=== PATIENT | female | born 1955 | race Two or more races ===

== ENCOUNTER 2019-09-18 03:57 | Inpatient (IN) | payer OTHER ==
[~2019-09-18] VITALS: Ht 162.6 cm; Wt 91.0 kg
[2019-09-18] MEDS ORDERED: SODIUM CHLORIDE 0.9% 2,600 ML IV ONE (04:31)
[2019-09-18 05:58] LABS: BASOPHILS % (AUTO) 0.4 % (0.0-2.0); EOSINOPHILS % (AUTO) 0.2 % (1.0-6.0); HEMATOCRIT 47.4 % (36-46); HEMOGLOBIN 15.9 g/dL (12.0-16.0); LYMPHOCYTES # (AUTO) 2.2 K/uL (1.0-4.8); LYMPHOCYTES % (AUTO) 17.7 % (22.0-44.0); MEAN CORPUSCULAR HEMOGLOBIN 30.9 pg (26.0-34.0); MEAN CORPUSCULAR HGB CONC 33.5 G/dL (31.0-37.0); MEAN CORPUSCULAR VOLUME 92 fL (80-100); MONOCYTES # (AUTO) 1.2 K/uL (0.1-1.0); MONOCYTES % (AUTO) 9.4 % (2.0-9.0); NEUTROPHILS # (AUTO) 8.9 K/uL (1.8-7.7); NEUTROPHILS % (AUTO) 72.3 % (40.0-70.0); PLATELET COUNT (AUTO) 357 K/uL (150-450); RED BLOOD CELL COUNT(AUTO) 5.14 MIL/uL (4.00-5.20); RED CELL DISTRIBUTION WIDTH 13.3 % (11.5-14.5)
[2019-09-18 06:13] LABS: ANION GAP 15 mmol/L (8-16); CALCIUM, TOTAL 10.6 mg/dL (8.8-10.5); CARBON DIOXIDE 26 mmol/L (22-29); CHLORIDE 99 mmol/L (98-107); CREATININE 0.96 mg/dL (0.60-1.30); GLOMERULAR FILTR. RATE CALC 59 mL/min (>60); GLUCOSE,RANDOM 175 mg/dL (70-110); POTASSIUM 3.4 mmol/L (3.5-5.1); SODIUM SERUM 140 mmol/L (136-145); UREA NITROGEN, BLOOD 11 mg/dL (7-18)
[2019-09-18 06:14] LABS: PROTHROMBIN TIME 10.7 SEC (9.4-11.6)
[2019-09-18 06:19] LABS: ALANINE AMINOTRANSFERASE 40 U/L (12-78); ALBUMIN 4.4 g/dL (3.4-5.0); ALKALINE PHOSPHATASE 194 U/L (46-116); ASPARTATE AMINOTRANSFERASE 32 U/L (15-37); BILIRUBIN,TOTAL 0.6 mg/dL (0.1-1.0); TOTAL PROTEIN, SERUM 9.4 g/dL (6.4-8.2)
[2019-09-18 06:24] LABS: B-TYPE NATRIURETIC PEPTIDE < 5 pg/mL (0-100)
[2019-09-18 06:41] LABS: FREE T4 (FREE THYROXINE) 1.38 ng/dL (0.76-1.46); THYROID STIMULATING HORMONE 1.33 uIU/mL (0.36-3.74)
[2019-09-18] MEDS ORDERED: LORazepam 2 MG/ML VIAL ONE (09:09)
[2019-09-18] MEDS ORDERED: DiphenhydrAMINE HCL 50 MG/ML VIAL ONE (09:09)
[2019-09-18] MEDS ORDERED: METOPROLOL TARTRATE 5 MG/5 ML VIAL IVP ONE (11:15)
[2019-09-18 11:44] LABS: APPEARANCE,URINE CLEAR (CLEAR); BILIRUBIN,URINE NEGATIVE (NEGATIVE); GLUCOSE, URINE (UA) NEGATIVE (NEGATIVE); KETONES,URINE 40 mg/dL (NEGATIVE); LEUKOCYTE ESTERASE ,URINE NEGATIVE (NEGATIVE); NITRATE,URINE NEGATIVE (NEGATIVE); OCCULT BLOOD,URINE NEGATIVE (NEGATIVE); PH,URINE 6.5 (5.0-8.0); PROTEIN,URINE NEGATIVE (NEGATIVE); UROBILINOGEN,URINE 0.2 mg/dL (<=1.0)
[2019-09-18 11:49] LABS: AMPHET/METH SCREEN,URINE NEGATIVE (NEGATIVE); BARBITURATE SCREEN, URINE NEGATIVE (NEGATIVE); BENZODIAZEPINES SCREEN,URINE NEGATIVE (NEGATIVE); CANNABINOID SCREEN,URINE NEGATIVE (NEGATIVE); COCAINE SCREEN,URINE NEGATIVE (NEGATIVE); METHADONE SCREEN, URINE NEGATIVE (NEGATIVE); OPIATE SCREEN,URINE NEGATIVE (NEGATIVE); PHENCYCLIDINE SCREEN,URINE NEGATIVE (NEGATIVE)
[2019-09-18 11:51] LABS: BASOPHILS % (AUTO) 0.4 % (0.0-2.0); EOSINOPHILS % (AUTO) 0.3 % (1.0-6.0); HEMATOCRIT 42.9 % (36-46); HEMOGLOBIN 14.5 g/dL (12.0-16.0); LYMPHOCYTES # (AUTO) 2.1 K/uL (1.0-4.8); MEAN CORPUSCULAR HEMOGLOBIN 31.2 pg (26.0-34.0); MEAN CORPUSCULAR HGB CONC 33.8 G/dL (31.0-37.0); MEAN CORPUSCULAR VOLUME 92 fL (80-100); MONOCYTES % (AUTO) 11.1 % (2.0-9.0); NEUTROPHILS # (AUTO) 5.9 K/uL (1.8-7.7); NEUTROPHILS % (AUTO) 65.2 % (40.0-70.0); PLATELET COUNT (AUTO) 291 K/uL (150-450); RED BLOOD CELL COUNT(AUTO) 4.66 MIL/uL (4.00-5.20); RED CELL DISTRIBUTION WIDTH 13.4 % (11.5-14.5)
[2019-09-18] MEDS ORDERED: ACETAMINOPHEN 325 MG TABLET PO PRN (12:00)
[2019-09-18] MEDS ORDERED: ALBUTEROL SULFATE 2.5 MG/0.5 ML NEB SOLUTION NEB PRN (12:00)
[2019-09-18] MEDS ORDERED: IPRATROPIUM BROMIDE 0.5 MG/2.5 ML NEB SOLUTION NEB PRN (12:00)
[2019-09-18] MEDS ORDERED: DOCUSATE SODIUM 100 MG CAPSULE PO PRN (12:00)
[2019-09-18] MEDS ORDERED: BISACODYL 10 MG RECTAL RECTAL SUPPOSITORY PR PRN (12:00)
[2019-09-18] MEDS ORDERED: 0.9% SODIUM CHLORIDE 10 ML SYRINGE IVP PRN (12:00)
[2019-09-18] MEDS ORDERED: MAGNESIUM HYDROXIDE SUSPENSION 30 ML UDCUP PO PRN (12:00)
[2019-09-18] MEDS ORDERED: ONDANSETRON HCL 4 MG/2 ML VIAL IVP PRN (12:00)
[2019-09-18 12:28] LABS: ANION GAP 14 mmol/L (8-16); CALCIUM, TOTAL 8.9 mg/dL (8.8-10.5); CARBON DIOXIDE 23 mmol/L (22-29); CHLORIDE 107 mmol/L (98-107); CREATININE 0.79 mg/dL (0.60-1.30); GLOMERULAR FILTR. RATE CALC > 60 mL/min (>60); GLUCOSE,RANDOM 137 mg/dL (70-110); POTASSIUM 3.4 mmol/L (3.5-5.1); SODIUM SERUM 144 mmol/L (136-145); UREA NITROGEN, BLOOD 9 mg/dL (7-18)
[2019-09-18 12:33] LABS: ALANINE AMINOTRANSFERASE 35 U/L (12-78); ALBUMIN 3.7 g/dL (3.4-5.0); ALKALINE PHOSPHATASE 165 U/L (46-116); ASPARTATE AMINOTRANSFERASE 29 U/L (15-37); BILIRUBIN,TOTAL 0.5 mg/dL (0.1-1.0); TOTAL PROTEIN, SERUM 7.8 g/dL (6.4-8.2)
[2019-09-18] MEDS: SODIUM CHLORIDE 0.9% 1,000 ML IV SCH (12:58)
[2019-09-18 14:14] VITALS: BP 148/80
[2019-09-18 16:14] VITALS: BP 137/85
[2019-09-18] MEDS ORDERED: IBUP-1506 PO (16:42)
[2019-09-18] MEDS ORDERED: CARB100 PO (16:42)
[2019-09-18] MEDS ORDERED: QUET25TA PO (16:42)
[2019-09-18] MEDS ORDERED: INFLUENZA VIRUS VACCINE QVS 2019-20 (3YR+)/PF 60 MCG/0.5 ML SYRINGE IM ONE (18:00)
[2019-09-18] MEDS ORDERED: POTASSIUM CHLORIDE 20 MEQ ER TABLET PO PRN (18:00)
[2019-09-18] MEDS: POTASSIUM CHL 10 MEQ/WATER 50 ML IV PRN (18:16)
[2019-09-18 20:30] VITALS: BP 144/91
[2019-09-18] MEDS: HEPARIN SODIUM,PORCINE 5,000 UNITS/ML VIAL SQ SCH (21:00)
[2019-09-18 23:00] VITALS: BP 149/96
[2019-09-19] MEDS: SODIUM CHLORIDE 0.9% 1,000 ML IV SCH ×2 (01:20→14:40)
[2019-09-19 04:45] VITALS: BP 148/99
[2019-09-19 08:01] VITALS: BP 151/104
[2019-09-19] MEDS: PANTOPRAZOLE SODIUM 40 MG DR TABLET PO SCH (09:00)
[2019-09-19] MEDS ORDERED: NIFEdipine 30 MG ER TABLET PO SCH (09:00)
[2019-09-19] MEDS: HEPARIN SODIUM,PORCINE 5,000 UNITS/ML VIAL SQ SCH ×2 (09:00→21:30)
[2019-09-19] MEDS: NIFEdipine 30 MG ER TABLET PO SCH ×2 (21:00→21:30)
[2019-09-19 21:30] VITALS: BP 166/99
[2019-09-20 00:42] VITALS: BP 163/117
[2019-09-20] MEDS: HydrALAZINE HCL 20 MG/ML VIAL IVP PRN ×2 (01:16→05:34)
[2019-09-20] MEDS: SODIUM CHLORIDE 0.9% 1,000 ML IV SCH ×2 (04:00→17:20)
[2019-09-20 04:48] VITALS: BP 166/96
[2019-09-20] MEDS ORDERED: METOPROLOL TARTRATE 5 MG/5 ML VIAL IVP ONE (06:00)
[2019-09-20 07:30] VITALS: BP 146/78
[2019-09-20] MEDS: HEPARIN SODIUM,PORCINE 5,000 UNITS/ML VIAL SQ SCH ×2 (08:48→21:00)
[2019-09-20] MEDS: NIFEdipine 30 MG ER TABLET PO SCH ×2 (09:00→21:00)
[2019-09-20] MEDS: PANTOPRAZOLE SODIUM 40 MG DR TABLET PO SCH (09:00)
[2019-09-20] MEDS ORDERED: ATOR10TA69 PO (10:10)
[2019-09-20] MEDS ORDERED: METF-960 PO (10:10)
[2019-09-20 10:16] LABS: BASOPHILS % (AUTO) 0.4 % (0.0-2.0); EOSINOPHILS % (AUTO) 0.3 % (1.0-6.0); LYMPHOCYTES # (AUTO) 1.9 K/uL (1.0-4.8); LYMPHOCYTES % (AUTO) 19.1 % (22.0-44.0); MEAN CORPUSCULAR HEMOGLOBIN 30.8 pg (26.0-34.0); MEAN CORPUSCULAR HGB CONC 33.3 G/dL (31.0-37.0); MEAN CORPUSCULAR VOLUME 93 fL (80-100); MONOCYTES # (AUTO) 0.9 K/uL (0.1-1.0); MONOCYTES % (AUTO) 8.9 % (2.0-9.0); NEUTROPHILS % (AUTO) 71.3 % (40.0-70.0); PLATELET COUNT (AUTO) 399 K/uL (150-450); RED BLOOD CELL COUNT(AUTO) 5.19 MIL/uL (4.00-5.20); RED CELL DISTRIBUTION WIDTH 13.6 % (11.5-14.5)
[2019-09-20 10:28] LABS: ANION GAP 14 mmol/L (8-16); CALCIUM, TOTAL 9.9 mg/dL (8.8-10.5); CARBAMAZEPINE (TEGRETOL) 0.7 mcg/mL (4.0-12.0); CARBON DIOXIDE 22 mmol/L (22-29); CHLORIDE 103 mmol/L (98-107); CREATININE 0.87 mg/dL (0.60-1.30); GLOMERULAR FILTR. RATE CALC > 60 mL/min (>60); GLUCOSE,RANDOM 168 mg/dL (70-110); POTASSIUM 3.7 mmol/L (3.5-5.1); SODIUM SERUM 139 mmol/L (136-145); UREA NITROGEN, BLOOD 14 mg/dL (7-18)
[2019-09-20 11:03] VITALS: BP 142/96
[2019-09-20] MEDS: HydrALAZINE HCL 25 MG TABLET PO SCH ×3 (14:55→21:00)
[2019-09-20 15:58] VITALS: BP 148/89
[2019-09-20 19:42] VITALS: BP 156/89
[2019-09-20 20:59] LABS: GLUCOMETER DEV NAME(LOC) 5N.2; GLUCOSE,POINT OF CARE 165 MG/DL (70-110)
[2019-09-21] VITALS (8 sets, daily range): BP systolic 101–151; BP diastolic 35–101
[2019-09-21] MEDS: LORazepam 2 MG/ML VIAL IVP PRN ×3 (00:47→17:35)
[2019-09-21 06:26] LABS: GLUCOMETER DEV NAME(LOC) 5S.1; GLUCOSE,POINT OF CARE 174 MG/DL (70-110)
[2019-09-21 06:26] LABS: GLUCOMETER DEV NAME(LOC) 5S.1; GLUCOSE,POINT OF CARE 139 MG/DL (70-110)
[2019-09-21] MEDS: SODIUM CHLORIDE 0.9% 1,000 ML IV SCH ×2 (06:40→12:51)
[2019-09-21 06:42] LABS: GLUCOMETER DEV NAME(LOC) 5N.1; GLUCOSE,POINT OF CARE 161 MG/DL (70-110)
[2019-09-21 07:26] LABS: BASOPHILS % (AUTO) 0.3 % (0.0-2.0); EOSINOPHILS % (AUTO) 1.3 % (1.0-6.0); HEMATOCRIT 44.4 % (36-46); HEMOGLOBIN 14.7 g/dL (12.0-16.0); LYMPHOCYTES # (AUTO) 2.9 K/uL (1.0-4.8); LYMPHOCYTES % (AUTO) 26.8 % (22.0-44.0); MEAN CORPUSCULAR VOLUME 94 fL (80-100); MONOCYTES # (AUTO) 1.1 K/uL (0.1-1.0); NEUTROPHILS # (AUTO) 6.7 K/uL (1.8-7.7); NEUTROPHILS % (AUTO) 61.6 % (40.0-70.0); PLATELET COUNT (AUTO) 378 K/uL (150-450); RED BLOOD CELL COUNT(AUTO) 4.73 MIL/uL (4.00-5.20); RED CELL DISTRIBUTION WIDTH 13.6 % (11.5-14.5)
[2019-09-21 07:36] LABS: ANION GAP 17 mmol/L (8-16); CALCIUM, TOTAL 9.9 mg/dL (8.8-10.5); CARBON DIOXIDE 22 mmol/L (22-29); CHLORIDE 106 mmol/L (98-107); CREATININE 0.92 mg/dL (0.60-1.30); GLOMERULAR FILTR. RATE CALC > 60 mL/min (>60); GLUCOSE,RANDOM 115 mg/dL (70-110); POTASSIUM 4.1 mmol/L (3.5-5.1); SODIUM SERUM 145 mmol/L (136-145); UREA NITROGEN, BLOOD 18 mg/dL (7-18)
[2019-09-21] MEDS: PANTOPRAZOLE SODIUM 40 MG DR TABLET PO SCH (08:28)
[2019-09-21] MEDS: NIFEdipine 30 MG ER TABLET PO SCH ×2 (08:28→23:55)
[2019-09-21] MEDS: HydrALAZINE HCL 25 MG TABLET PO SCH ×4 (08:28→23:55)
[2019-09-21] MEDS: HEPARIN SODIUM,PORCINE 5,000 UNITS/ML VIAL SQ SCH ×2 (08:28→23:54)
[2019-09-21 12:36] LABS: GLUCOMETER DEV NAME(LOC) 5N.1; GLUCOSE,POINT OF CARE 154 MG/DL (70-110)
[2019-09-21] MEDS: CarBAMazepine 200 MG TABLET PO SCH ×2 (16:49→23:55)
[2019-09-21] MEDS: QUEtiapine FUMARATE 300 MG TABLET PO SCH ×2 (16:50→23:54)
[2019-09-21 20:39] LABS: GLUCOMETER DEV NAME(LOC) 5S.2A; GLUCOSE,POINT OF CARE 130 MG/DL (70-110)
[2019-09-21] MEDS ORDERED: QUEtiapine FUMARATE 300 MG TABLET PO SCH ×2 (21:00)
[2019-09-21] MEDS ORDERED: HydrALAZINE HCL 20 MG/ML VIAL IVP PRN (21:00)
[2019-09-21] MEDS ORDERED: CarBAMazepine 200 MG TABLET PO SCH ×2 (21:00)
[2019-09-22 00:19] VITALS: BP 156/86
[2019-09-22 05:32] VITALS: BP 124/66
[2019-09-22 06:02] LABS: GLUCOMETER DEV NAME(LOC) 6S.1; GLUCOSE,POINT OF CARE 117 MG/DL (70-110)
[2019-09-22 06:58] LABS: BASOPHILS % (AUTO) 0.7 % (0.0-2.0); EOSINOPHILS % (AUTO) 1.5 % (1.0-6.0); HEMATOCRIT 39.8 % (36-46); HEMOGLOBIN 13.6 g/dL (12.0-16.0); LYMPHOCYTES # (AUTO) 2.5 K/uL (1.0-4.8); LYMPHOCYTES % (AUTO) 33.4 % (22.0-44.0); MEAN CORPUSCULAR HEMOGLOBIN 31.9 pg (26.0-34.0); MEAN CORPUSCULAR HGB CONC 34.2 G/dL (31.0-37.0); MEAN CORPUSCULAR VOLUME 93 fL (80-100); MONOCYTES # (AUTO) 0.7 K/uL (0.1-1.0); MONOCYTES % (AUTO) 10.2 % (2.0-9.0); NEUTROPHILS % (AUTO) 54.2 % (40.0-70.0); PLATELET COUNT (AUTO) 285 K/uL (150-450); RED BLOOD CELL COUNT(AUTO) 4.27 MIL/uL (4.00-5.20); RED CELL DISTRIBUTION WIDTH 13.7 % (11.5-14.5)
[2019-09-22 07:09] LABS: ANION GAP 14 mmol/L (8-16); CALCIUM, TOTAL 9.1 mg/dL (8.8-10.5); CARBON DIOXIDE 23 mmol/L (22-29); CHLORIDE 104 mmol/L (98-107); CREATININE 0.74 mg/dL (0.60-1.30); GLOMERULAR FILTR. RATE CALC > 60 mL/min (>60); GLUCOSE,RANDOM 114 mg/dL (70-110); SODIUM SERUM 141 mmol/L (136-145); UREA NITROGEN, BLOOD 12 mg/dL (7-18)
[2019-09-22 07:14] LABS: POTASSIUM 2.9 mmol/L (3.5-5.1)
[2019-09-22 07:36] VITALS: BP 159/78
[2019-09-22] MEDS: HEPARIN SODIUM,PORCINE 5,000 UNITS/ML VIAL SQ SCH ×2 (08:12→20:06)
[2019-09-22] MEDS: LORazepam 2 MG/ML VIAL IVP PRN (08:14)
[2019-09-22] MEDS: HydrALAZINE HCL 25 MG TABLET PO SCH ×4 (08:14→20:06)
[2019-09-22] MEDS: PANTOPRAZOLE SODIUM 40 MG DR TABLET PO SCH (08:14)
[2019-09-22] MEDS: NIFEdipine 30 MG ER TABLET PO SCH ×2 (08:14→21:24)
[2019-09-22] MEDS: QUEtiapine FUMARATE 300 MG TABLET PO SCH ×2 (08:14→21:24)
[2019-09-22] MEDS: CarBAMazepine 200 MG TABLET PO SCH ×2 (08:15→20:06)
[2019-09-22] MEDS: POTASSIUM CHL 10 MEQ/WATER 50 ML IV PRN ×4 (09:17→14:26)
[2019-09-22] MEDS: SODIUM CHLORIDE 0.9% 1,000 ML IV SCH (09:18)
[2019-09-22 12:00] LABS: GLUCOMETER DEV NAME(LOC) 6N.2; GLUCOSE,POINT OF CARE 117 MG/DL (70-110)
[2019-09-22 12:18] VITALS: BP 148/81
[2019-09-22 15:13] VITALS: BP 124/87
[2019-09-22 20:16] VITALS: BP 124/80
[2019-09-22 21:57] LABS: GLUCOMETER DEV NAME(LOC) 6N.2; GLUCOSE,POINT OF CARE 170 MG/DL (70-110)
== END 2019-09-22 21:30 | DRG 78 ==
LOC: EMS 03:57 → 5S 12:53 → 6N 09-21 19:10
PROVIDERS: ADMIT Internal Medicine; ATTEND Internal Medicine
DX: I67.4 Hypertensive encephalopathy (principal); R65.10 Systemic inflammatory response syndrome (SIRS) of non-infectious origin without acute organ dysfunction; F20.9 Schizophrenia, unspecified; E87.6 Hypokalemia; R73.9 Hyperglycemia, unspecified; I10 Essential (primary) hypertension; Z79.899 Other long term (current) drug therapy
CPT/HCPCS: 70450; 83036; 83605; 83970; 84132; 84145; 84439; 84443; 87040; 93005; 93306; 97116; 97162; 99291; G0378; G0480; J0360; J1200; J1644; J2060; J3480; J3490; J7030

== ENCOUNTER 2019-09-22 21:30 | Inpatient (IN) | payer OTHER ==
[~2019-09-22] VITALS: Ht 162.6 cm; Wt 87.8 kg
[~2019-09-22 21:30] MED LIST: ATOR10TA69 PO; CARB100 PO; IBUP-1506 PO; METF-960 PO; QUET25TA PO
[2019-09-22] MEDS ORDERED: INFLUENZA VIRUS VACCINE QVS 2019-20 (3YR+)/PF 60 MCG/0.5 ML SYRINGE IM ONE (23:00)
[2019-09-22 23:01] VITALS: BP 147/99
[2019-09-22] MEDS ORDERED: PNEUMOCOCCAL VACCINE POLYVALENT 0.5 ML VIAL [PPSV23] IM ONE (23:15)
[2019-09-23 05:31] LABS: GLUCOMETER DEV NAME(LOC) 3E.I 2; GLUCOSE,POINT OF CARE 118 MG/DL (70-110)
[2019-09-23 06:08] VITALS: BP 140/71
[2019-09-23] MEDS: HALOPERIDOL 5 MG TABLET PO PRN (06:55)
[2019-09-23] MEDS: LORazepam 2 MG TABLET PO PRN (06:55)
[2019-09-23 08:48] VITALS: BP 117/67
[2019-09-23] MEDS ORDERED: LOPERAMIDE HCL 2 MG CAPSULE PO PRN (09:15)
[2019-09-23] MEDS ORDERED: MAG HYDROX/AL HYDROX/SIMETH ES 30 ML SUSPENSION UDCUP PO PRN (09:15)
[2019-09-23] MEDS ORDERED: ONDANSETRON HCL 4 MG TABLET PO PRN (09:15)
[2019-09-23] MEDS ORDERED: GuaiFENesin/D-METHORPHAN [SUGAR-FREE] 200-20MG/10 ML SYRUP UDCUP PO PRN (09:15)
[2019-09-23] MEDS ORDERED: ALBUTEROL SULFATE HFA 90 MCG/PUFF 8 GM INHALER IH PRN (09:15)
[2019-09-23] MEDS ORDERED: PETROLATUM,WHITE 28 GM JELLY TP PRN (09:15)
[2019-09-23] MEDS ORDERED: CloNIDine HCL 0.1 MG TABLET PO PRN (09:15)
[2019-09-23] MEDS ORDERED: ACETAMINOPHEN 325 MG TABLET PO PRN (09:15)
[2019-09-23] MEDS ORDERED: NICOTINE 14 MG/24 HOUR PATCH TD PRN (09:15)
[2019-09-23] MEDS ORDERED: DOCUSATE SODIUM 100 MG CAPSULE PO PRN (09:15)
[2019-09-23] MEDS ORDERED: IBUPROFEN 400 MG TABLET PO PRN (09:15)
[2019-09-23 09:24] LABS: CHOL/HDL RATIO 3.8 (3.9-5.7); POTASSIUM 3.4 mmol/L (3.5-5.1)
[2019-09-23] MEDS: CarBAMazepine 100 MG CHEWABLE TABLET PO SCH ×2 (09:48→16:55)
[2019-09-23] MEDS: HydrALAZINE HCL 25 MG TABLET PO SCH ×4 (09:48→20:45)
[2019-09-23] MEDS: PANTOPRAZOLE SODIUM 40 MG DR TABLET PO SCH (09:48)
[2019-09-23] MEDS: NIFEdipine 30 MG ER TABLET PO SCH ×2 (09:49→16:54)
[2019-09-23] MEDS: QUEtiapine FUMARATE 300 MG TABLET PO SCH ×2 (09:49→16:54)
[2019-09-23] MEDS ORDERED: POTASSIUM CHLORIDE 20 MEQ ER TABLET PO ONE (16:45)
[2019-09-23] MEDS: MetFORMIN HCL 500 MG ER TABLET PO SCH (16:55)
[2019-09-23] MEDS: ATORVASTATIN CALCIUM 10 MG TABLET PO SCH (20:45)
[2019-09-24 05:29] LABS: GLUCOMETER DEV NAME(LOC) 3E.I 2; GLUCOSE,POINT OF CARE 125 MG/DL (70-110)
[2019-09-24 08:30] VITALS: BP 117/65
[2019-09-24] MEDS: CarBAMazepine 100 MG CHEWABLE TABLET PO SCH ×2 (08:41→18:05)
[2019-09-24] MEDS: QUEtiapine FUMARATE 300 MG TABLET PO SCH ×2 (08:41→18:05)
[2019-09-24] MEDS: PANTOPRAZOLE SODIUM 40 MG DR TABLET PO SCH (08:42)
[2019-09-24] MEDS: NIFEdipine 30 MG ER TABLET PO SCH ×2 (08:42→18:05)
[2019-09-24] MEDS: HydrALAZINE HCL 25 MG TABLET PO SCH ×4 (08:42→21:40)
[2019-09-24] MEDS: MetFORMIN HCL 500 MG ER TABLET PO SCH (18:05)
[2019-09-24] MEDS: ATORVASTATIN CALCIUM 10 MG TABLET PO SCH (21:40)
[2019-09-25 04:28] VITALS: BP 121/72
[2019-09-25 06:02] LABS: GLUCOMETER DEV NAME(LOC) 3E.I 2; GLUCOSE,POINT OF CARE 129 MG/DL (70-110)
[2019-09-25] MEDS: NIFEdipine 30 MG ER TABLET PO SCH ×2 (08:23→17:02)
[2019-09-25] MEDS: PANTOPRAZOLE SODIUM 40 MG DR TABLET PO SCH (08:23)
[2019-09-25] MEDS: HydrALAZINE HCL 25 MG TABLET PO SCH ×4 (08:23→20:48)
[2019-09-25] MEDS: QUEtiapine FUMARATE 300 MG TABLET PO SCH ×2 (08:23→10:04)
[2019-09-25] MEDS: CarBAMazepine 100 MG CHEWABLE TABLET PO SCH ×2 (08:23→17:02)
[2019-09-25 09:17] VITALS: BP 109/86
[2019-09-25] MEDS: MAGNESIUM HYDROXIDE SUSPENSION 30 ML UDCUP PO PRN (10:11)
[2019-09-25 16:02] VITALS: BP 150/70
[2019-09-25] MEDS: MetFORMIN HCL 500 MG ER TABLET PO SCH (17:34)
[2019-09-25] MEDS: ATORVASTATIN CALCIUM 10 MG TABLET PO SCH (20:48)
[2019-09-26 00:25] VITALS: BP 144/74
[2019-09-26] MEDS: LORazepam 2 MG TABLET PO PRN (02:40)
[2019-09-26] MEDS: ZOLPIDEM TARTRATE 10 MG TABLET PO PRN (02:40)
[2019-09-26 05:51] LABS: GLUCOMETER DEV NAME(LOC) 3E.I 2; GLUCOSE,POINT OF CARE 146 MG/DL (70-110)
[2019-09-26 08:01] VITALS: BP 107/68
[2019-09-26] MEDS: QUEtiapine FUMARATE 300 MG TABLET PO SCH ×2 (09:21→16:34)
[2019-09-26] MEDS: HydrALAZINE HCL 25 MG TABLET PO SCH ×4 (09:21→20:15)
[2019-09-26] MEDS: CarBAMazepine 100 MG CHEWABLE TABLET PO SCH ×2 (09:21→16:34)
[2019-09-26] MEDS: PANTOPRAZOLE SODIUM 40 MG DR TABLET PO SCH (09:21)
[2019-09-26] MEDS: NIFEdipine 30 MG ER TABLET PO SCH ×2 (09:22→16:34)
[2019-09-26 16:12] VITALS: BP 130/79
[2019-09-26] MEDS: MetFORMIN HCL 500 MG ER TABLET PO SCH (16:34)
[2019-09-26 17:39] LABS: GLUCOMETER DEV NAME(LOC) 3E.I 2; GLUCOSE,POINT OF CARE 154 MG/DL (70-110)
[2019-09-26] MEDS: ATORVASTATIN CALCIUM 10 MG TABLET PO SCH (20:15)
[2019-09-27 03:00] VITALS: BP 132/69
[2019-09-27 05:38] LABS: GLUCOMETER DEV NAME(LOC) 3E.I 2; GLUCOSE,POINT OF CARE 142 MG/DL (70-110)
[2019-09-27 07:58] LABS: APPEARANCE,URINE CLOUDY (CLEAR); BILIRUBIN,URINE NEGATIVE (NEGATIVE); GLUCOSE, URINE (UA) NEGATIVE (NEGATIVE); KETONES,URINE NEGATIVE (NEGATIVE); LEUKOCYTE ESTERASE ,URINE MODERATE (NEGATIVE); NITRATE,URINE NEGATIVE (NEGATIVE); OCCULT BLOOD,URINE NEGATIVE (NEGATIVE); PH,URINE 5.5 (5.0-8.0); PROTEIN,URINE NEGATIVE (NEGATIVE); UROBILINOGEN,URINE 0.2 mg/dL (<=1.0)
[2019-09-27 08:23] LABS: BACTERIA,URINE Moderate /HPF (None Seen); RBC,URINE None Seen /HPF (0-2); SQUAMOUS EPITHELIAL CELL,UR Few /LPF (None Seen)
[2019-09-27 08:38] VITALS: BP 137/71
[2019-09-27] MEDS: PANTOPRAZOLE SODIUM 40 MG DR TABLET PO SCH (09:00)
[2019-09-27] MEDS: QUEtiapine FUMARATE 300 MG TABLET PO SCH ×2 (09:00→16:44)
[2019-09-27] MEDS: NIFEdipine 30 MG ER TABLET PO SCH ×2 (09:01→17:28)
[2019-09-27] MEDS: HydrALAZINE HCL 25 MG TABLET PO SCH ×4 (09:01→21:00)
[2019-09-27] MEDS: CarBAMazepine 100 MG CHEWABLE TABLET PO SCH ×2 (09:06→16:44)
[2019-09-27] MEDS: CEPHALEXIN MONOHYDRATE 250 MG CAPSULE PO SCH ×2 (13:00→16:50)
[2019-09-27 16:03] VITALS: BP 117/66
[2019-09-27 16:53] LABS: GLUCOMETER DEV NAME(LOC) 3E.I 2; GLUCOSE,POINT OF CARE 111 MG/DL (70-110)
[2019-09-27] MEDS: MetFORMIN HCL 500 MG ER TABLET PO SCH (17:28)
[2019-09-27] MEDS: ATORVASTATIN CALCIUM 10 MG TABLET PO SCH (21:06)
[2019-09-27 21:12] VITALS: BP 111/55
[2019-09-27] MEDS: ZOLPIDEM TARTRATE 10 MG TABLET PO PRN (21:12)
[2019-09-28 02:40] VITALS: BP 141/89
[2019-09-28] MEDS: HALOPERIDOL 5 MG TABLET PO PRN (02:44)
[2019-09-28] MEDS: LORazepam 2 MG TABLET PO PRN (02:44)
[2019-09-28 06:39] LABS: GLUCOMETER DEV NAME(LOC) 3E.I 2; GLUCOSE,POINT OF CARE 123 MG/DL (70-110)
[2019-09-28 08:00] VITALS: BP 159/96
[2019-09-28] MEDS: PANTOPRAZOLE SODIUM 40 MG DR TABLET PO SCH (08:23)
[2019-09-28] MEDS: CEPHALEXIN MONOHYDRATE 250 MG CAPSULE PO SCH ×3 (08:24→16:56)
[2019-09-28] MEDS: HydrALAZINE HCL 25 MG TABLET PO SCH ×4 (08:24→21:13)
[2019-09-28] MEDS: QUEtiapine FUMARATE 300 MG TABLET PO SCH ×2 (08:24→17:23)
[2019-09-28] MEDS: CarBAMazepine 100 MG CHEWABLE TABLET PO SCH ×2 (08:24→17:23)
[2019-09-28] MEDS: NIFEdipine 30 MG ER TABLET PO SCH ×2 (08:25→16:56)
[2019-09-28 16:37] VITALS: BP 126/82
[2019-09-28 17:12] LABS: GLUCOMETER DEV NAME(LOC) 3E.I 2; GLUCOSE,POINT OF CARE 111 MG/DL (70-110)
[2019-09-28] MEDS: MetFORMIN HCL 500 MG ER TABLET PO SCH (17:22)
[2019-09-28 21:12] VITALS: BP 113/59
[2019-09-28] MEDS: ATORVASTATIN CALCIUM 10 MG TABLET PO SCH (21:14)
[2019-09-29 05:37] VITALS: BP 117/73
[2019-09-29 05:42] LABS: GLUCOMETER DEV NAME(LOC) 3E.I 2; GLUCOSE,POINT OF CARE 122 MG/DL (70-110)
[2019-09-29 08:18] VITALS: BP 133/86
[2019-09-29] MEDS: CarBAMazepine 100 MG CHEWABLE TABLET PO SCH ×2 (09:05→17:47)
[2019-09-29] MEDS: NIFEdipine 30 MG ER TABLET PO SCH ×2 (09:06→17:47)
[2019-09-29] MEDS: HydrALAZINE HCL 25 MG TABLET PO SCH ×4 (09:06→21:21)
[2019-09-29] MEDS: PANTOPRAZOLE SODIUM 40 MG DR TABLET PO SCH (09:06)
[2019-09-29] MEDS: CEPHALEXIN MONOHYDRATE 250 MG CAPSULE PO SCH ×3 (09:06→17:47)
[2019-09-29] MEDS: QUEtiapine FUMARATE 300 MG TABLET PO SCH ×2 (09:06→17:46)
[2019-09-29 13:30] VITALS: BP 133/73
[2019-09-29 16:02] VITALS: BP_SYST 11; BP_SYST 111; BP_DIAS 64
[2019-09-29 17:08] LABS: GLUCOMETER DEV NAME(LOC) 3E.I 2; GLUCOSE,POINT OF CARE 120 MG/DL (70-110)
[2019-09-29] MEDS: MetFORMIN HCL 500 MG ER TABLET PO SCH (17:46)
[2019-09-29] MEDS: ATORVASTATIN CALCIUM 10 MG TABLET PO SCH (21:20)
[2019-09-29] MEDS: ZOLPIDEM TARTRATE 10 MG TABLET PO PRN (21:23)
[2019-09-30 06:28] LABS: GLUCOMETER DEV NAME(LOC) 3E.I 2; GLUCOSE,POINT OF CARE 127 MG/DL (70-110)
[2019-09-30] MEDS: PANTOPRAZOLE SODIUM 40 MG DR TABLET PO SCH (09:00)
[2019-09-30] MEDS: NIFEdipine 30 MG ER TABLET PO SCH ×2 (09:00→17:00)
[2019-09-30] MEDS: CEPHALEXIN MONOHYDRATE 250 MG CAPSULE PO SCH ×3 (09:00→17:00)
[2019-09-30] MEDS: QUEtiapine FUMARATE 300 MG TABLET PO SCH ×2 (09:00→17:00)
[2019-09-30] MEDS: HydrALAZINE HCL 25 MG TABLET PO SCH ×4 (09:00→21:00)
[2019-09-30] MEDS: CarBAMazepine 100 MG CHEWABLE TABLET PO SCH ×2 (09:00→17:00)
[2019-09-30 10:22] VITALS: BP 138/81
[2019-09-30] MEDS: MetFORMIN HCL 500 MG ER TABLET PO SCH (17:30)
[2019-09-30 17:35] LABS: GLUCOMETER DEV NAME(LOC) 3E.I 2; GLUCOSE,POINT OF CARE 126 MG/DL (70-110)
[2019-09-30 17:39] VITALS: BP 150/83
[2019-09-30] MEDS: ATORVASTATIN CALCIUM 10 MG TABLET PO SCH (21:00)
[2019-09-30] MEDS ORDERED: LORazepam 2 MG/ML VIAL IM ONE (22:30)
[2019-09-30] MEDS ORDERED: DiphenhydrAMINE HCL 50 MG/ML VIAL IM ONE (22:30)
[2019-09-30] MEDS ORDERED: HALOPERIDOL LACTATE 5 MG/ML VIAL IM ONE (22:30)
[2019-10-01 05:09] VITALS: BP 157/84
[2019-10-01 05:25] LABS: GLUCOMETER DEV NAME(LOC) 3E.I 2; GLUCOSE,POINT OF CARE 177 MG/DL (70-110)
[2019-10-01] MEDS ORDERED: HALOPERIDOL LACTATE 5 MG/ML VIAL IM ONE (08:15)
[2019-10-01] MEDS ORDERED: LORazepam 2 MG/ML VIAL IM ONE (08:15)
[2019-10-01] MEDS ORDERED: DiphenhydrAMINE HCL 50 MG/ML VIAL IM ONE (08:15)
[2019-10-01 08:30] VITALS: BP 161/102
[2019-10-01] MEDS: HydrALAZINE HCL 25 MG TABLET PO SCH ×4 (09:00→21:24)
[2019-10-01] MEDS: CarBAMazepine 100 MG CHEWABLE TABLET PO SCH ×2 (09:00→17:22)
[2019-10-01] MEDS: NIFEdipine 30 MG ER TABLET PO SCH ×2 (09:00→17:21)
[2019-10-01 11:48] LABS: BASOPHILS % (AUTO) 0.4 % (0.0-2.0); EOSINOPHILS % (AUTO) 0 % (1.0-6.0); HEMATOCRIT 43.2 % (36-46); HEMOGLOBIN 14.6 g/dL (12.0-16.0); LYMPHOCYTES # (AUTO) 1.7 K/uL (1.0-4.8); LYMPHOCYTES % (AUTO) 22.9 % (22.0-44.0); MEAN CORPUSCULAR HGB CONC 33.8 G/dL (31.0-37.0); MEAN CORPUSCULAR VOLUME 92 fL (80-100); MONOCYTES # (AUTO) 0.7 K/uL (0.1-1.0); MONOCYTES % (AUTO) 10.1 % (2.0-9.0); NEUTROPHILS # (AUTO) 4.9 K/uL (1.8-7.7); NEUTROPHILS % (AUTO) 66.6 % (40.0-70.0); PLATELET COUNT (AUTO) 331 K/uL (150-450); RED BLOOD CELL COUNT(AUTO) 4.71 MIL/uL (4.00-5.20); RED CELL DISTRIBUTION WIDTH 13.2 % (11.5-14.5)
[2019-10-01 11:58] LABS: ANION GAP 13 mmol/L (8-16); CALCIUM, TOTAL 9.2 mg/dL (8.8-10.5); CARBON DIOXIDE 24 mmol/L (22-29); CHLORIDE 102 mmol/L (98-107); CREATININE 0.88 mg/dL (0.60-1.30); GLOMERULAR FILTR. RATE CALC > 60 mL/min (>60); GLUCOSE,RANDOM 177 mg/dL (70-110); POTASSIUM 3.5 mmol/L (3.5-5.1); SODIUM SERUM 139 mmol/L (136-145); UREA NITROGEN, BLOOD 12 mg/dL (7-18)
[2019-10-01] MEDS: PANTOPRAZOLE SODIUM 40 MG DR TABLET PO SCH (12:25)
[2019-10-01] MEDS: QUEtiapine FUMARATE 300 MG TABLET PO SCH ×2 (12:26→17:21)
[2019-10-01] MEDS: CEPHALEXIN MONOHYDRATE 250 MG CAPSULE PO SCH ×3 (12:27→17:21)
[2019-10-01] MEDS: MetFORMIN HCL 500 MG ER TABLET PO SCH (17:21)
[2019-10-01 20:49] LABS: APPEARANCE,URINE CLEAR (CLEAR); BILIRUBIN,URINE NEGATIVE (NEGATIVE); GLUCOSE, URINE (UA) 100 mg/dL (NEGATIVE); KETONES,URINE NEGATIVE (NEGATIVE); LEUKOCYTE ESTERASE ,URINE NEGATIVE (NEGATIVE); NITRATE,URINE NEGATIVE (NEGATIVE); OCCULT BLOOD,URINE NEGATIVE (NEGATIVE); PH,URINE 5.5 (5.0-8.0); PROTEIN,URINE NEGATIVE (NEGATIVE); UROBILINOGEN,URINE 0.2 mg/dL (<=1.0)
[2019-10-01 21:03] LABS: BACTERIA,URINE None Seen /HPF (None Seen); RBC,URINE None Seen /HPF (0-2); SQUAMOUS EPITHELIAL CELL,UR Few /LPF (None Seen); WBC,URINE 0-2 /HPF (0-5)
[2019-10-01] MEDS: ATORVASTATIN CALCIUM 10 MG TABLET PO SCH (21:24)
[2019-10-02 05:50] LABS: GLUCOMETER DEV NAME(LOC) 3E.I 2; GLUCOSE,POINT OF CARE 128 MG/DL (70-110)
[2019-10-02] MEDS: PANTOPRAZOLE SODIUM 40 MG DR TABLET PO SCH (08:41)
[2019-10-02] MEDS: QUEtiapine FUMARATE 300 MG TABLET PO SCH ×2 (08:41→17:34)
[2019-10-02] MEDS: CarBAMazepine 100 MG CHEWABLE TABLET PO SCH ×2 (08:42→17:34)
[2019-10-02] MEDS: CEPHALEXIN MONOHYDRATE 250 MG CAPSULE PO SCH ×3 (08:43→17:34)
[2019-10-02] MEDS: HydrALAZINE HCL 25 MG TABLET PO SCH ×4 (08:49→21:00)
[2019-10-02] MEDS: NIFEdipine 30 MG ER TABLET PO SCH ×2 (08:49→17:33)
[2019-10-02 10:31] VITALS: BP 109/69
[2019-10-02 16:01] VITALS: BP 112/72
[2019-10-02 16:16] LABS: GLUCOMETER DEV NAME(LOC) 3E.I 2; GLUCOSE,POINT OF CARE 139 MG/DL (70-110)
[2019-10-02] MEDS: MetFORMIN HCL 500 MG ER TABLET PO SCH (17:33)
[2019-10-02 21:01] VITALS: BP 110/53
[2019-10-02] MEDS: ATORVASTATIN CALCIUM 10 MG TABLET PO SCH (21:03)
[2019-10-03 05:22] VITALS: BP 112/71
[2019-10-03 05:36] LABS: GLUCOMETER DEV NAME(LOC) 3E.I 2; GLUCOSE,POINT OF CARE 136 MG/DL (70-110)
[2019-10-03 08:53] VITALS: BP 122/73
[2019-10-03] MEDS: QUEtiapine FUMARATE 300 MG TABLET PO SCH ×2 (09:14→17:49)
[2019-10-03] MEDS: NIFEdipine 30 MG ER TABLET PO SCH ×2 (09:14→17:49)
[2019-10-03] MEDS: PANTOPRAZOLE SODIUM 40 MG DR TABLET PO SCH (09:14)
[2019-10-03] MEDS: HydrALAZINE HCL 25 MG TABLET PO SCH ×4 (09:14→20:59)
[2019-10-03] MEDS: CarBAMazepine 100 MG CHEWABLE TABLET PO SCH ×2 (09:15→17:49)
[2019-10-03 16:11] VITALS: BP 135/88
[2019-10-03 17:23] LABS: GLUCOMETER DEV NAME(LOC) 3E.I 2; GLUCOSE,POINT OF CARE 123 MG/DL (70-110)
[2019-10-03] MEDS: MetFORMIN HCL 500 MG ER TABLET PO SCH (17:49)
[2019-10-03] MEDS: ATORVASTATIN CALCIUM 10 MG TABLET PO SCH (20:59)
[2019-10-04 05:43] LABS: GLUCOMETER DEV NAME(LOC) 3E.I 2; GLUCOSE,POINT OF CARE 129 MG/DL (70-110)
[2019-10-04 06:32] VITALS: BP 138/71
[2019-10-04 08:09] VITALS: BP 126/79
[2019-10-04] MEDS: HydrALAZINE HCL 25 MG TABLET PO SCH ×4 (08:58→21:14)
[2019-10-04] MEDS: NIFEdipine 30 MG ER TABLET PO SCH ×2 (08:59→20:51)
[2019-10-04] MEDS: QUEtiapine FUMARATE 300 MG TABLET PO SCH ×2 (08:59→20:51)
[2019-10-04] MEDS: PANTOPRAZOLE SODIUM 40 MG DR TABLET PO SCH (08:59)
[2019-10-04] MEDS: CarBAMazepine 100 MG CHEWABLE TABLET PO SCH ×2 (08:59→20:53)
[2019-10-04 16:28] VITALS: BP 133/69
[2019-10-04] MEDS: MetFORMIN HCL 500 MG ER TABLET PO SCH (20:53)
[2019-10-04] MEDS: ATORVASTATIN CALCIUM 10 MG TABLET PO SCH (20:53)
[2019-10-05 05:34] LABS: GLUCOMETER DEV NAME(LOC) 3E.I 2; GLUCOSE,POINT OF CARE 136 MG/DL (70-110)
[2019-10-05 06:11] VITALS: BP 111/66
[2019-10-05] MEDS: HydrALAZINE HCL 25 MG TABLET PO SCH ×4 (08:09→20:20)
[2019-10-05] MEDS: QUEtiapine FUMARATE 300 MG TABLET PO SCH ×2 (08:09→16:44)
[2019-10-05] MEDS: PANTOPRAZOLE SODIUM 40 MG DR TABLET PO SCH (08:09)
[2019-10-05] MEDS: CarBAMazepine 100 MG CHEWABLE TABLET PO SCH ×2 (08:09→16:44)
[2019-10-05] MEDS: NIFEdipine 30 MG ER TABLET PO SCH ×2 (08:09→16:43)
[2019-10-05 08:23] VITALS: BP 126/78
[2019-10-05 16:16] VITALS: BP 105/76
[2019-10-05 16:29] LABS: GLUCOMETER DEV NAME(LOC) 3EX.; GLUCOSE,POINT OF CARE 164 MG/DL (70-110)
[2019-10-05] MEDS: MetFORMIN HCL 500 MG ER TABLET PO SCH (17:30)
[2019-10-05] MEDS: ATORVASTATIN CALCIUM 10 MG TABLET PO SCH (20:21)
[2019-10-06 02:55] VITALS: BP 123/64
[2019-10-06 05:47] LABS: GLUCOMETER DEV NAME(LOC) 3E.I 2; GLUCOSE,POINT OF CARE 130 MG/DL (70-110)
[2019-10-06] MEDS: MAGNESIUM HYDROXIDE SUSPENSION 30 ML UDCUP PO PRN (06:09)
[2019-10-06 08:01] VITALS: BP 132/80
[2019-10-06] MEDS: QUEtiapine FUMARATE 300 MG TABLET PO SCH (09:00)
[2019-10-06] MEDS: CarBAMazepine 100 MG CHEWABLE TABLET PO SCH (10:09)
[2019-10-06] MEDS: NIFEdipine 30 MG ER TABLET PO SCH (10:10)
[2019-10-06] MEDS: HydrALAZINE HCL 25 MG TABLET PO SCH ×2 (10:11→13:41)
[2019-10-06] MEDS: PANTOPRAZOLE SODIUM 40 MG DR TABLET PO SCH (10:12)
[2019-10-06] MEDS ORDERED: CARB100T4 PO (11:15)
[2019-10-06] MEDS ORDERED: QUET300T2 PO (11:15)
[2019-10-06] MEDS ORDERED: HYDR25TA84 PO (11:22)
[2019-10-06] MEDS ORDERED: NIFE30TA5 PO (11:22)
[2019-10-06] MEDS ORDERED: PANT40TA25 PO (11:22)
[2019-10-06] MEDS ORDERED: METF-910 PO (11:22)
[2019-10-06] MEDS ORDERED: METO25 PO (14:56)
[2019-10-06] MEDS ORDERED: METOPROLOL TARTRATE 25 MG TABLET PO SCH (17:00)
== END 2019-10-06 16:45 | disposition home or self-care (01) | DRG 885 ==
LOC: 3EI 21:30
PROVIDERS: ADMIT Internal Medicine; ATTEND Psychiatry & Neurology Child & Adolescent Psychiatry
DX: F25.0 Schizoaffective disorder, bipolar type (principal); N39.0 Urinary tract infection, site not specified; R45.851 Suicidal ideations; E11.9 Type 2 diabetes mellitus without complications; E78.5 Hyperlipidemia, unspecified; I10 Essential (primary) hypertension; F19.10 Other psychoactive substance abuse, uncomplicated; Z79.899 Other long term (current) drug therapy
CPT/HCPCS: 83036; 84132; 87081; 87086; 90686; J1200; J1630; J2060